=== PATIENT | female | born 1955 | race Caucasian/White ===

== ENCOUNTER → 2019-03-17 11:59 | Outpatient (CLI) | payer OTHER, SELFPAY ==
--- NOTE | 2019-03-17 12:01 | DI.RAD.S_ITS ---
PROCEDURE: XR CERVICAL SPINE 2V OR 3V INDICATIONS: continuing pain after fall TECHNIQUE: 3 view(s) of the cervical spine were acquired. COMPARISON: None. FINDINGS: Bones: No fractures or dislocations to the T1 level. The lateral masses of C1 appear intact on the odontoid view. No suspicious bony lesions there is a moderate degree of degenerative disc disease with disc height reduction at C34 and C4-5. Moderately severe such degeneration is seen at C5-6 and C6-7.. Soft tissues: No prevertebral soft tissue swelling. IMPRESSION: Degenerative disc disease along the cervical spine is best seen on the middle and lower thirds, and not associated with subluxation or trauma. Depending on the clinical status followup by MR scanning may be warranted. MR scanning may detect trauma and has not been accurately detected by plain film. Dictated by: Kyle Kerns M.D. on 03/17/2019 at 13:02 Approved by: Kyle Kerns M.D. on 03/17/2019 at 13:03
--- NOTE | 2019-03-17 12:01 | DI.CT.S_ITS ---
PROCEDURE: CT HEAD/BRAIN WO CON INDICATIONS: FALL INJURY TO HEAD WITH CONCUSSION TECHNIQUE: Noncontrast 4.5 mm thick angled axial sections acquired from the foramen magnum to the vertex, with coronal and sagittal reformats. For radiation dose reduction, the following was used: automated exposure control, adjustment of mA and/or kV according to patient size. COMPARISON: None. FINDINGS: Image quality: Excellent. CSF spaces: Basal cisterns are patent. No extra-axial fluid collections. Ventricles are normal in size and shape. Brain: No midline shift. No intracranial masses or hemorrhage. Olmos-white matter interface is normal. Skull and face: Calvarium and visualized facial bones are intact, without suspicious lesions. Sinuses: Visualized sinuses and mastoids are clear. IMPRESSION: No trauma found. Dictated by: Kyle Kerns M.D. on 03/17/2019 at 12:38 Approved by: Kyle Kerns M.D. on 03/17/2019 at 12:38
== END ==
PROVIDERS: Family Provider Family Medicine; PCP Family Medicine; Referring Provider Family Medicine; Visit Provider Family Medicine
DX: S06.0X9A Concussion with loss of consciousness of unspecified duration, initial encounter (principal); R07.9 Chest pain, unspecified; M50.31 Other cervical disc degeneration, high cervical region; W19.XXXA Unspecified fall, initial encounter
CPT/HCPCS: 70450; 72040

== ENCOUNTER → 2020-04-25 10:44 | Outpatient (CLI) | payer OTHER, SELFPAY ==
--- NOTE | 2020-04-25 10:45 | DI.MG.S_ITS ---
BILATERAL DIGITAL SCREENING MAMMOGRAM 3D/2D WITH CAD: 04/25/2020 CLINICAL: Routine screening. Baseline exam by default. No prior exams were available for comparison. There are scattered fibroglandular elements in both breasts. Current study was also evaluated with a Computer Aided Detection (CAD) system. No significant masses, calcifications, or other findings are seen in either breast. IMPRESSION: NEGATIVE There is no mammographic evidence of malignancy. A 1 year screening mammogram is recommended. This exam was interpreted at Station ID: [id number]. NOTE: For mammograms, a report in lay terms will be sent to the patient. Approximately 15% of breast malignancies will not be visualized mammographically. In the management of a palpable breast mass, a negative mammogram must not discourage biopsy of a clinically suspicious lesion. Electronically Signed By: Garrett kelly/nissa:04/25/2020 12:11:23 letter sent: Normal Exam ACR BI-RADS Category 1: Negative 3341F
== END ==
PROVIDERS: Family Provider Family Medicine; PCP Family Medicine; Referring Provider Family Medicine; Visit Provider Family Medicine
DX: Z12.31 Encounter for screening mammogram for malignant neoplasm of breast (principal)
CPT/HCPCS: 77063; 77067

== ENCOUNTER 2023-03-05 13:16 | Emergency (ER) | payer OTHER, SELFPAY ==
[2023-03-05 13:19] VITALS: BP 218/112; PULSE 108; RESP 26; TEMP 36.8; O2SAT 99; BMI 33.2
[2023-03-05 13:30] VITALS: BP 203/96; PULSE 90; RESP 22; O2SAT 98
[2023-03-05] MEDS: ONDANSETRON 4 MG/2 ML INJ IV (13:43)
[2023-03-05] MEDS: SODIUM CHLORIDE 0.9% 1,000 ML 1000 ML IV (13:43)
[2023-03-05] MEDS: DEXAMETHASONE 10 MG/ML VIAL IV (13:43)
[2023-03-05] MEDS: diphenhydrAMINE 50 MG/ML VIAL IV (13:43)
[2023-03-05 14:00] VITALS: PULSE 76; RESP 29; O2SAT 99
[2023-03-05 14:01] VITALS: BP 194/88; PULSE 76; RESP 19; O2SAT 99
[2023-03-05 14:30] VITALS: BP 201/94; PULSE 76; RESP 19; O2SAT 99
--- NOTE | 2023-03-05 14:32 | ED.ALLEREA ---
HPI - Allergic Reaction General Chief complaint: Allergic Reaction Stated complaint: allergic reaction, sob, throat hurting Time Seen by Provider: 03/05/23 13:31 Source: patient Mode of arrival: Ambulatory History of Present Illness HPI narrative: 67-year-old female presents for possible allergic reaction. Patient states she started a new herbal supplement today. She took a pill and left her house. Shortly after she left she felt like she was choking and couldn't breathe. Also had nausea. Patient reports being under significant stress recently and does endorse a lot of anxiety. She states she currently feels better but still like she may have possibly had a reaction. Related Data Previous Rx's Medication Instructions Recorded lisinopril 40 mg tablet (Zestril) 40 mg PO QDAY #90 tabs 07/25/22 metoprolol succinate 50 mg 50 mg PO DAILY #90 tabs 07/25/22 tablet,extended release 24 hr (Toprol XL) estradiol 0.01% (0.1 mg/gram) 0.25 appful vaginal BEDTIME #42.5 12/18/22 vaginal cream grams epinephrine 0.3 mg/0.3 mL 0.3 mg (0.3 mL) IM Q4H PRN 03/05/23 injection, auto-injector (EpiPen) anaphylaxis #2 ea Allergies Allergy/AdvReac Type Severity Reaction Status Date / Time codeine Allergy Mild NAUSEA/VOMI Verified 12/18/22 13:20 TING Review of Systems Review of Systems Narrative: Otherwise negative Patient History Surgical History Status post colonoscopy (01/18/15) Status post biopsy (07/27/14) Social History marital status: Smoking Status: Never smoker alcohol intake: never substance use type: does not use Smoking Status: Never smoker Substance Use Type: does not use Exam Initial Vital Signs Initial Vital Signs: Vital Signs Temperature 98.3 F 03/05/23 13:19 Pulse Rate 108 H 03/05/23 13:19 Respiratory Rate 26 H 03/05/23 13:19 Blood Pressure 218/112 H 03/05/23 13:19 Pulse Oximetry 99 03/05/23 13:19 Oxygen Delivery Method Room Air 03/05/23 13:19 Const: Awake, alert, no acute distress, nontoxic appearing ENT: Airway patent, mucous membranes moist, no trismus, no pooling of secretions Cardiac: regular rate, regular rhythm RESP: unlabored, clear bilaterally, no wheezing GI: Atraumatic, soft, nontender, nondistended, no rebound, no guarding MSK: Atraumatic, full range of motion, pulses equal Skin: Warm, Dry, intact, no rashes Neuro: AO x3, CN II-XII grossly intact, moves all extremities Psych: affect normal, mood normal, not suicidal, not homicidal Course Orders Ordered: Discontinued Medications Dexamethasone (Dexamethasone 10 Mg/Ml Vial) 10 mg IV NOW ONE Stop: 03/05/23 13:33 Last Admin: 03/05/23 13:43 Dose: 10 mg Documented By: DEMI Diphenhydramine HCl (Diphenhydramine 50 Mg/Ml Vial) 50 mg IV NOW ONE Stop: 03/05/23 13:33 Last Admin: 03/05/23 13:43 Dose: 50 mg Documented By: DEMI Sodium Chloride (Normal Saline 0.9%) 1,000 mls @ 1,000 mls/hr IV BOLUS ONE Stop: 03/05/23 14:31 Last Admin: 03/05/23 13:43 Dose: 1,000 mls/hr Documented By: DEMI Ondansetron HCl (Ondansetron 4 Mg/2 Ml Inj) 4 mg IV NOW ONE Stop: 03/05/23 13:34 Last Admin: 03/05/23 13:43 Dose: 4 mg Documented By: DEMI Vital Signs Vital signs: Vital Signs - 8 hr 03/05/23 13:19 03/05/23 13:30 03/05/23 13:30 Temperature 98.3 F Pulse Rate 108 H 90 Respiratory Rate 26 H 22 Blood Pressure 218/112 H 203/96 H Pulse Oximetry 99 98 Oxygen Delivery Method Room Air 03/05/23 14:00 03/05/23 14:01 03/05/23 14:01 Temperature Pulse Rate 76 76 Respiratory Rate 29 H 19 Blood Pressure 194/88 H Pulse Oximetry 99 99 Oxygen Delivery Method 03/05/23 14:30 03/05/23 14:30 03/05/23 14:48 Temperature Pulse Rate 76 73 Respiratory Rate 19 15 Blood Pressure 201/94 H Pulse Oximetry 99 94 Oxygen Delivery Method 03/05/23 14:48 Temperature Pulse Rate Respiratory Rate Blood Pressure 152/73 H Pulse Oximetry Oxygen Delivery Method MDM - Allergic Reaction Differential Diagnosis Differential diagnosis: Likely anaphylaxis, allergic reaction and other MDM Narrative Medical decision making narrative: Possible allergic reaction to herbal supplement. Patient's airway is patent, however due to subjective throat swelling and nausea with vomiting we will treat as allergic reaction with steroids, antiemetics, Benadryl, fluids. Patient was monitored in the emergency department, symptoms improved after medication administration. She states she will not take the supplements again and we will follow with her primary care physician. In case patient has allergic reaction of this nature again an EpiPen prescription was sent to pharmacy of choice. Discharge Plan Departure Patient Disposition: Home Clinical Impression: Adverse reaction to drug Instructions: DI for Adverse Drug Reaction -- Allergic Prescriptions: New epinephrine [EpiPen] 0.3 mg/0.3 mL auto-injector 0.3 mg IM Q4H PRN (Reason: anaphylaxis) Qty: 2 0RF No Action lisinopril [Zestril] 40 mg tablet 40 mg PO QDAY Qty: 90 3RF metoprolol succinate [Toprol XL] 50 mg tablet extended release 24 hr 50 mg PO DAILY Qty: 90 3RF estradiol 0.01 % (0.1 mg/gram) cream 0.25 appful vaginal BEDTIME Qty: 42.5 0RF Rx Instructions: Apply fingertip size amount just inside vaginal opening and on genitals or inguinal area, nightly for 2 weeks then twice weekly thereafter Referrals: Haresh Mccoy MD [Primary Care Provider] - Stand Alone Forms: Patient Portal/API
[2023-03-05 14:48] VITALS: BP 152/73; PULSE 73; RESP 15; O2SAT 94
== END 2023-03-05 15:19 | disposition home or self-care (01) ==
PROVIDERS: Emergency Provider Emergency Medicine; Family Provider Family Medicine; PCP Family Medicine
DX: R22.1 Localized swelling, mass and lump, neck (principal); R11.2 Nausea with vomiting, unspecified; T50.905A Adverse effect of unspecified drugs, medicaments and biological substances, initial encounter
CPT/HCPCS: 36415; 96374; 96375; 99284; J1100; J1200; J2405